=== PATIENT | female | born 1940 | race Caucasian/White ===

== ENCOUNTER 2018-11-17 14:22 | Emergency (ER) | payer MEDICARE, MEDICAID ==
[2018-11-17 14:38] VITALS: BP 171/71
[2018-11-17] MEDS ORDERED: Bacitracin Oint 1 GM U/D Packet TOP ONE (14:54)
[2018-11-17] MEDS ORDERED: Lidocaine 1% with EPINEPHrine 1:100,000 50 ML MDV INFILT ONE (14:54)
--- NOTE | 2018-11-17 15:04 | EDM.PDOC ---
ED HPI GENERAL MEDICAL PROBLEM - General Chief Complaint: Laceration Stated Complaint: FELL & CUT NEAR THE EYE Time Seen by Provider: 11/17/18 14:45 Source of Information: Reports: Patient History Limitations: Reports: No Limitations - History of Present Illness INITIAL COMMENTS - FREE TEXT/NARRATIVE: 78 yo female tripped and fell to the grass. she was wearing glasses and the glasses pushed into the lateral skin of face 2 cm from eye. bleeding is controlled. She denies headache, LOC or nausea Left Face/Facial Pain Score (Numeric/FACES): 8 - Related Data Allergies Allergy/AdvReac Type Severity Reaction Status Date / Time Penicillins Allergy Rash Verified 06/03/15 06:14 Sulfa (Sulfonamide Allergy Cannot Verified 06/03/15 06:14 Antibiotics) Remember Home Meds: Home Meds Albuterol Sulfate [Proair Hfa] 2 puff IH QID 09/01/13 [History] Brimonidine/Timolol [Combigan 0.2%/0.5% Ophth Soln] 1 drop EYEBOTH BID 09/01/13 [History] Latanoprost 1 drop EYEBOTH BEDTIME 09/01/13 [History] Omeprazole 20 mg PO DAILY 09/01/13 [History] Rosuvastatin Calcium [Crestor] 10 mg PO DAILY 09/01/13 [History] Alendronate [Fosamax] 70 mg PO Q7D@0600 06/01/15 [History] Aspirin [Geovanni Chewable] 81 mg PO DAILY 06/01/15 [History] Budesonide/Formoterol [Symbicort 160-4.5 MCG] 11/17/18 [History] Past Medical History HEENT History: Reports: Cataract, Glaucoma Cardiovascular History: Reports: Heart Murmur, High Cholesterol, Other (See Below) Other Cardiovascular History: hx rheumatic fever Respiratory History: Reports: Asthma Gastrointestinal History: Reports: GERD, Hemorrhoids, Other (See Below) Other Gastrointestinal History: hx colon polyp SAND TESTER History: Reports: , Spontaneous Musculoskeletal History: Reports: Arthritis, Osteoporosis Neurological History: Reports: TIA Hematologic History: Reports: Anemia - Infectious Disease History Infectious Disease History: Reports: Measles, Other (See Below) Other Infectious Disease History: rheumatic fever at age 19 yo - Past Surgical History HEENT Surgical History: Reports: Cataract Surgery Female Surgical History: Reports: D&C Social & Family History - Family History Cardiac: Reports: Other (See Below) Other Cardiac Family History: carotid endarterectomy Neurological: Reports: CVA Oncologic: Reports: Breast, Colon, Liver - Tobacco Use Smoking Status *Q: Never Smoker - Caffeine Use Caffeine Use: Reports: Coffee - Recreational Drug Use Recreational Drug Use: No ED ROS GENERAL - Review of Systems Review Of Systems: See Below Constitutional: Denies: Fever, Chills Respiratory: Denies: Shortness of Breath Cardiovascular: Denies: Chest Pain ED EXAM, SKIN/RASH Exam: See Below Exam Limited By: No Limitations General Appearance: Alert, WD/WN, No Apparent Distress Eye Exam: Bilateral Eye: PERRL Nose: Normal Inspection, No Blood Head: Atraumatic, Normocephalic Respiratory/Chest: No Respiratory Distress Cardiovascular: Normal Peripheral Pulses, Regular Rate, Rhythm Skin: Warm, Dry, Intact, Other (pie shaped laceration to left eye) Location, Skin: Face ED SKIN PROCEDURES - Laceration/Wound Repair Left Lateral Face Lac/Wound length In cm: 2 (1cm x 1cm pie) Appearance: Superficial Distal NVT: Neuro & Vascular Intact, No Tendon Injury Anesthetic Type: Local Local Anesthesia - Lidocaine (Xylocaine): 1% with EPI Local Anesthetic Volume: 2cc Skin Prep: Chlorhexidine (Hibiciens), Saline, Sterile Drape Saline Irrigation (cc's): 25 Exploration/Debridement/Repair: Wound Explored, In a Bloodless Field, Explored to Base, Minimal Debridement, No Foreign Material Found Closed with: Sutures Suture Size: other (5-0) # of Sutures: 5 Suture Type: Nylon Sterile Dressing Applied: Nurse Tetanus Status Addressed: Yes Complications: No Course - Vital Signs Last Recorded V/S: Last Vital Signs Temp 36.3 C 11/17/18 14:34 Pulse 90 11/17/18 14:34 Resp 18 11/17/18 14:34 BP 171/71 H 11/17/18 14:34 Pulse Ox 99 11/17/18 14:34 - Orders/Labs/Meds Meds: Medications Discontinued Medications Generic Name Dose Route Start Last Admin Trade Name Freq PRN Reason Stop Dose Admin Bacitracin 1 dose 11/17/18 14:54 11/17/18 15:18 Bacitracin Oint 1 Gm TOP 11/17/18 14:55 1 dose ONETIME ONE Administration Lidocaine/Epinephrine 3 ml 11/17/18 14:54 11/17/18 15:18 Xylocaine 1% With Epinephrine 1:100,000 INFILT 11/17/18 14:55 3 ml ONETIME ONE Administration Departure - Departure Time of Disposition: 15:44 Disposition: Home, Self-Care 01 Condition: Good Clinical Impression: Laceration Facial laceration Qualifiers: Encounter type: initial encounter Qualified Code(s): S01.81XA - Laceration without foreign body of other part of head, initial encounter - Discharge Information *PRESCRIPTION DRUG MONITORING PROGRAM REVIEWED*: Not Applicable *COPY OF PRESCRIPTION DRUG MONITORING REPORT IN PATIENT ROSCOE: Not Applicable Instructions: Facial Laceration Referrals: Lindy Kruger MD [Primary Care Provider] - Forms: ED Department Discharge Additional Instructions: sutures out in 7 days ice as much as possible over the next 24 hours tylenol as needed for headache and pain
== END 2018-11-17 15:57 | disposition home or self-care (01) ==
LOC: JP.ED 14:22
DX: S01.112A Laceration without foreign body of left eyelid and periocular area, initial encounter (principal); J45.909 Unspecified asthma, uncomplicated; E78.00 Pure hypercholesterolemia, unspecified; K21.9 Gastro-esophageal reflux disease without esophagitis; Z79.82 Long term (current) use of aspirin; W01.0XXA Fall on same level from slipping, tripping and stumbling without subsequent striking against object, initial encounter; Z88.0 Allergy status to penicillin; Z88.2 Allergy status to sulfonamides; Z79.899 Other long term (current) drug therapy
CPT/HCPCS: 12011; 99282

== ENCOUNTER 2022-07-19 14:16 | Emergency (ER) | payer MEDICARE ==
[2022-07-19] MEDS ORDERED: HYDROmorphone 0.5 MG/0.5 ML Syringe IVPUSH ONE (15:17)
[2022-07-19] MEDS ORDERED: Ketorolac 30 MG/ML SDV IVPUSH ONE (16:13)
[2022-07-19 16:25] VITALS: BP 135/55; PULSE 71
== END 2022-07-19 17:02 | disposition home or self-care (01) ==
LOC: JP.ED 14:16
DX: S30.0XXA Contusion of lower back and pelvis, initial encounter (principal); J45.909 Unspecified asthma, uncomplicated; E78.00 Pure hypercholesterolemia, unspecified; Z88.0 Allergy status to penicillin; Z88.2 Allergy status to sulfonamides; Z79.899 Other long term (current) drug therapy; Z87.891 Personal history of nicotine dependence; W22.8XXA Striking against or struck by other objects, initial encounter
CPT/HCPCS: 72100; 96374; 96375; 99283; 99284; J1170; J1885

== ENCOUNTER 2023-10-05 06:54 | Emergency (ER) | payer MEDICARE ==
[2023-10-05] MEDS: Sodium Chloride 0.9% 1,000 ML IV STA (07:40)
[2023-10-05 07:41] LABS: BASOPHILS ABSOLUTE AUTO 0.04 K/uL (0.00-0.10); BASOPHILS PERCENT AUTO 0.6 % (0.1-1.3); EOSINOPHILS PERCENT AUTO 1.5 % (0.0-5.4); HEMATOCRIT 35.7 % (34.3-46.0); HEMOGLOBIN 11.7 g/dL (11.2-15.5); IMMATURE GRAN PERCENT AUTO 0.3 % (0.0-0.7); LYMPHOCYTES ABSOLUTE AUTO 1.47 K/uL (0.8-3.3); LYMPHOCYTES PERCENT AUTO 22.3 % (11.4-47.7); MEAN CORPUSCULAR HEMOGLOBIN 28.3 pg (31.6-35.5); MEAN CORPUSCULAR HGB CONC 32.8 g/dL (31.6-35.5); MEAN CORPUSCULAR VOLUME 86.2 fL (81.4-99.0); MONOCYTES ABSOLUTE AUTO 0.62 K/uL (0.20-0.90); MONOCYTES PERCENT AUTO 9.4 % (3.3-12.6); NEUTROPHILS ABSOLUTE AUTO 4.35 K/uL (1.0-7.6); NEUTROPHILS PERCENT AUTO 65.9 % (40.0-78.1); PLATELET COUNT,PLT 276 K/uL (130-375); RED BLOOD CELL COUNT 4.14 M/uL (3.77-5.24); WHITE BLOOD CELL COUNT,WBC 6.6 K/uL (3.2-11.0)
[2023-10-05] MEDS: Sodium Chloride 0.9% 10 ML Syringe FLUSH PRN (07:41)
[2023-10-05 07:43] LABS: IMMATURE GRAN ABSOLUTE AUTO 0.02 K/uL (0.00-0.23)
[2023-10-05 08:06] LABS: ALANINE AMINOTRANSFERASE,ALT 8 U/L (12-78); ALBUMIN 3.4 g/dL (3.4-5.0); ALKALINE PHOSPHATASE 59 U/L (46-116); ANION GAP 10.9 mmol/L (5.0-14.0); ASPARTATE AMNIOTRANSFERASE,AST 21 U/L (15-37); BILIRUBIN TOTAL 0.4 mg/dL (0.2-1.0); BLOOD UREA NITROGEN,BUN 17 mg/dL (7-18); CALCIUM 8.8 mg/dL (8.5-10.1); CARBON DIOXIDE,CO2 25 mmol/L (21-32); CHLORIDE,CL 107 mmol/L (100-108); CREATININE 0.9 mg/dL (0.6-1.0); EST CRCL DRUG DOSING (CG) 35.21 mL/min; ESTIMATED GFR 64 mL/min (>60); GLUCOSE RANDOM 100 mg/dL (74-106); POTASSIUM,K 3.7 mmol/L (3.6-5.2); PROTEIN TOTAL,TP 6.9 g/dL (6.4-8.2); SODIUM,NA 143 mmol/L (140-148); TROPONIN I HIGH SENSITIVITY 6.8 pg/mL (<=60.3)
[2023-10-05] MEDS: Ketorolac 30 MG/ML SDV IVPUSH ONE (08:11)
[2023-10-05] MEDS: Iopamidol 612 MG/ML 100 ML Bottle IV PRN (08:24)
[2023-10-05] MEDS: Sodium Chloride 0.9% 10 ML Syringe FLUSH ONE (08:24)
[2023-10-05] MEDS: Sodium Chloride 0.9% 80 ML IV SCH (08:24)
[2023-10-05 09:03] LABS: APPEARANCE,URINE CLEAR (CLEAR); BILIRUBIN,URINE NEGATIVE (NEGATIVE); COLOR,URINE YELLOW (YELLOW); GLUCOSE,URINE NEGATIVE (NEGATIVE); KETONES,URINE NEGATIVE (NEGATIVE); LEUKOCYTE ESTERASE,URINE NEGATIVE (NEGATIVE); NITRITE,URINE NEGATIVE (NEGATIVE); OCCULT BLOOD,URINE NEGATIVE (NEGATIVE); PH,URINE 7.5 (5.0-8.0); PROTEIN,URINE NEGATIVE (NEGATIVE); UROBILINOGEN,URINE 0.2 EU/dL (0.2-1.0)
[2023-10-05 09:38] LABS: AMORPHOUS SEDIMENT,URINE RARE; BACTERIA,URINE RARE; EPITHELIAL CELLS,URINE RARE; MUCUS,URINE RARE; RBC,URINE 0-5 (0-5); WBC,URINE 0-5 (0-5)
[2023-10-05 10:20] VITALS: BP 148/61; PULSE 73
== END 2023-10-05 10:20 | disposition home or self-care (01) ==
LOC: JP.ED 06:54
DX: K59.04 Chronic idiopathic constipation (principal); E78.00 Pure hypercholesterolemia, unspecified; J45.909 Unspecified asthma, uncomplicated; K21.9 Gastro-esophageal reflux disease without esophagitis; Z88.0 Allergy status to penicillin; Z88.2 Allergy status to sulfonamides; Z79.51 Long term (current) use of inhaled steroids; Z79.899 Other long term (current) drug therapy; Z87.891 Personal history of nicotine dependence
CPT/HCPCS: 36415; 74177; 80053; 81001; 83605; 83690; 84484; 85025; 93005; 96374; 99284; J1885; J3490; J7030; Q9967

== ENCOUNTER 2023-10-07 17:54 | Emergency (ER) | payer MEDICARE ==
[2023-10-07 18:24] VITALS: BP 146/58; PULSE 70
[2023-10-07] MEDS: Acetaminophen 500 MG Tab PO ONE (19:10)
[2023-10-07] MEDS: Sennosides/Docusate Sodium 50-8.6 MG Tab PO ONE (19:45)
== END 2023-10-07 19:53 | disposition home or self-care (01) ==
LOC: JP.ED 17:54
DX: K59.04 Chronic idiopathic constipation (principal); J45.909 Unspecified asthma, uncomplicated; E78.00 Pure hypercholesterolemia, unspecified; K21.9 Gastro-esophageal reflux disease without esophagitis; M81.0 Age-related osteoporosis without current pathological fracture; Z88.0 Allergy status to penicillin; Z88.2 Allergy status to sulfonamides; Z91.048 Other nonmedicinal substance allergy status; Z79.51 Long term (current) use of inhaled steroids
CPT/HCPCS: 99284; A9270

== ENCOUNTER 2023-10-09 02:57 | Emergency (ER) | payer MEDICARE ==
[2023-10-09 03:50] LABS: BASOPHILS ABSOLUTE AUTO 0.04 K/uL (0.00-0.10); BASOPHILS PERCENT AUTO 0.7 % (0.1-1.3); EOSINOPHILS ABSOLUTE AUTO 0.11 K/uL (0.00-0.40); EOSINOPHILS PERCENT AUTO 1.9 % (0.0-5.4); HEMATOCRIT 35.9 % (34.3-46.0); HEMOGLOBIN 11.8 g/dL (11.2-15.5); IMMATURE GRAN PERCENT AUTO 0.3 % (0.0-0.7); LYMPHOCYTES ABSOLUTE AUTO 1.96 K/uL (0.8-3.3); LYMPHOCYTES PERCENT AUTO 33.1 % (11.4-47.7); MEAN CORPUSCULAR HEMOGLOBIN 28.4 pg (31.6-35.5); MEAN CORPUSCULAR HGB CONC 32.9 g/dL (31.6-35.5); MEAN CORPUSCULAR VOLUME 86.3 fL (81.4-99.0); MONOCYTES ABSOLUTE AUTO 0.67 K/uL (0.20-0.90); MONOCYTES PERCENT AUTO 11.3 % (3.3-12.6); NEUTROPHILS ABSOLUTE AUTO 3.12 K/uL (1.0-7.6); NEUTROPHILS PERCENT AUTO 52.7 % (40.0-78.1); PLATELET COUNT,PLT 282 K/uL (130-375); RED BLOOD CELL COUNT 4.16 M/uL (3.77-5.24); WHITE BLOOD CELL COUNT,WBC 5.9 K/uL (3.2-11.0)
[2023-10-09 04:05] LABS: CALCIUM 8.9 mg/dL (8.5-10.1); CREATININE 0.8 mg/dL (0.6-1.0); EST CRCL DRUG DOSING (CG) 39.61 mL/min; POTASSIUM,K 3.4 mmol/L (3.6-5.2)
[2023-10-09] MEDS: Ketorolac 15 MG/ML SDV IM ONE (04:11)
[2023-10-09 04:17] LABS: ANION GAP 16.4 mmol/L (5.0-14.0); IMMATURE GRAN ABSOLUTE AUTO 0.02 K/uL (0.00-0.23)
[2023-10-09 05:18] VITALS: BP 181/70; PULSE 70
== END 2023-10-09 05:39 | disposition home or self-care (01) ==
LOC: JP.ED 02:57
DX: K59.00 Constipation, unspecified (principal); E78.00 Pure hypercholesterolemia, unspecified; K21.9 Gastro-esophageal reflux disease without esophagitis; J45.909 Unspecified asthma, uncomplicated; Z88.0 Allergy status to penicillin; Z88.2 Allergy status to sulfonamides; Z91.048 Other nonmedicinal substance allergy status; Z86.73 Personal history of transient ischemic attack (TIA), and cerebral infarction without residual deficits; Z79.51 Long term (current) use of inhaled steroids; Z79.899 Other long term (current) drug therapy
CPT/HCPCS: 36415; 74176; 80048; 83690; 85025; 96372; 99284; J1885

== ENCOUNTER 2024-08-15 08:17 | Emergency (ER) | payer MEDICARE ==
[2024-08-15] MEDS: Acetaminophen 500 MG Tab PO ONE (08:52)
[2024-08-15] MEDS: Carbidopa/Levodopa 25-100 MG Tab PO ONE (09:36)
[2024-08-15 10:24] VITALS: BP 163/59; PULSE 66
== END 2024-08-15 10:23 | disposition home or self-care (01) ==
LOC: JP.ED 08:17
DX: S32.10XA Unspecified fracture of sacrum, initial encounter for closed fracture (principal); E78.00 Pure hypercholesterolemia, unspecified; J45.909 Unspecified asthma, uncomplicated; Z88.0 Allergy status to penicillin; Z88.2 Allergy status to sulfonamides; Z91.048 Other nonmedicinal substance allergy status; Z79.51 Long term (current) use of inhaled steroids; Z79.899 Other long term (current) drug therapy; Z86.73 Personal history of transient ischemic attack (TIA), and cerebral infarction without residual deficits; W18.39XA Other fall on same level, initial encounter; Y93.89 Activity, other specified
CPT/HCPCS: 72192; 76377; 99284; A9270

== ENCOUNTER 2024-12-20 12:45 | Emergency (ER) | payer MEDICARE ==
[2024-12-20 13:28] VITALS: BP 137/58; PULSE 88
== END 2024-12-20 14:16 | disposition home or self-care (01) ==
LOC: JP.ED 12:45
DX: J06.9 Acute upper respiratory infection, unspecified (principal); E78.00 Pure hypercholesterolemia, unspecified; J45.909 Unspecified asthma, uncomplicated; Z88.0 Allergy status to penicillin; Z91.048 Other nonmedicinal substance allergy status; Z88.8 Allergy status to other drugs, medicaments and biological substances; Z86.73 Personal history of transient ischemic attack (TIA), and cerebral infarction without residual deficits
CPT/HCPCS: 99283; U0002